=== PATIENT | female | born 1990 | race American Indian/Alaskan Native ===

== ENCOUNTER 2019-11-13 22:14 | Emergency (ER) | payer OTHER ==
[2019-11-14] MEDS ORDERED: ACETAMINOPHEN 500 MG TAB PO ONE (02:57)
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
[2019-11-14 05:17] VITALS: BP 124/82
== END 2019-11-14 04:54 | disposition home or self-care (01) ==
LOC: ED 22:14
DX: S39.012A Strain of muscle, fascia and tendon of lower back, initial encounter (principal); S43.402A Unspecified sprain of left shoulder joint, initial encounter; V89.2XXA Person injured in unspecified motor-vehicle accident, traffic, initial encounter; Y93.89 Activity, other specified; Y92.410 Unspecified street and highway as the place of occurrence of the external cause; Y99.8 Other external cause status
CPT/HCPCS: 36415; 72100; 84703